=== PATIENT | female | born 1990 | race Caucasian/White ===

== ENCOUNTER 2019-02-14 18:45 | Emergency (ER) | payer MEDICAID, OTHER ==
[2019-02-14 19:36] LABS: SQUAMOUS EPITHIAL 4 /hpf (0-5); URINE AMORPHOUS SEDIMENT OCC /ul (<OCC); URINE BACTERIA OCC (<OCC); URINE BILIRUBIN NEGATIVE (NEGATIVE); URINE BLOOD NEGATIVE (NEGATIVE); URINE CLARITY CLOUDY (Clear); URINE COLOR YELLOW (YELLOW); URINE GLUCOSE (UA) NEG (NEGATIVE); URINE LEUKOCYTE ESTERASE MOD Leu/uL (Negative); URINE PROTEIN NEGATIVE (NEGATIVE); URINE UROBILINOGEN 0.2-1.0 mg/dL (0.2-1.0)
--- NOTE | 2019-02-14 20:04 | OBHP ---
Datetime: 02/14/2019 19:07 IP Adm Impression: , intrauterine IP Admit Plan: Observation/Evaluation Admit Comment, IP Provider: 28yo at 21.2 weeks EGA presents for abdominal discomfort, increased urinary frequency and urgency and decreased urinary output. Denies vaginal bleeding, dysuria, malodo shayan discharge, fever, chills or pain. No complicatioins with thus far as per patient. PMD: Dr Valero PMH: denies Meds: denies Allergy: denies Surg Hx: denies Fam Hx: denies OBHx: 28 day cycle, normal blood loss Labs: WNL as per patient, no confirmatory records ROS: all other systems reviewed and negative unless noted in HPI PE: NAD, comfortable, VSS, afebrile Abd: no tenderness to palpation Ext: no edema CV: RRR Back: no CVA tenderness Resp: no respiratory distress Doppler: FHR 155 A+P: 28yo at 21.2 weeks EGA presents for abdominal discomfort, increased urinary frequency an d urgency and decreased urinary output. -Afebrile, VSS -UA, Culture _ Sensitivity -Doppler: 155 bpm Case discussed with Dr Kim Ferris PGY1 Addendum by Dr. Alvarez: I have evaluated patient independently and I agree with the above. UA was s ent, showed evidence of possible UTI. Discussed with Dr. Valero will send patient home with script for Macrobid 100mg PO BID x 7 days. Discharge instructions reviewed with patient, f/u march 11 in off ice Pelvic Type - PN: Not Done Extremities - PN: Normal Abdomen - PN: Normal Back - PN: Normal Breast - PN: Not Done Lungs - PN: Normal Heart - PN: Normal Thyroid - PN: Not Done Neurologic - PN: Normal HEENT - PN: Normal General - PN: Normal FHR - Baseline A Provider: 155 EGA AdmitDate IP: 21.2 IP Chief Complaint: Signs/symptoms UTI Genitourinary Exam: Not Done DTRs - PN: Not Done
--- NOTE | 2019-02-14 20:08 | OBDCSUM ---
Datetime: 02/14/2019 20:03 Discharged to, Provider: Home Follow up at, Provider: Disch Instr Activity: Normal activity Disch Instr Diet: Regular Discharge Time: 02/14/2019 20:04 Follow up in weeks, Provider: 03/11/2019 Disch Referrals: None Disch Activity Restrictions: No lifting Discharge Diagnosis Prov Other: UTI in , second trimester
[2019-02-15 00:22] VITALS: BP 128/87; PULSE 98; TEMP 98.2
== END 2019-02-14 20:15 | disposition home or self-care (01) ==
LOC: H.EROB2 18:45
DX: O26.92 Pregnancy related conditions, unspecified, second trimester (principal); R10.2 Pelvic and perineal pain; R35.0 Frequency of micturition; Z3A.21 21 weeks gestation of pregnancy